=== PATIENT | female | born 1995 | race Caucasian/White ===

== ENCOUNTER 2018-07-22 15:28 | Emergency (ER) | payer MEDICAID ==
[~2018-07-22] VITALS: Ht 170.2 cm; Wt 87.5 kg
[2018-07-22 15:43] VITALS: Ht 170.2 cm; Wt 87.5 kg
[2018-07-22 19:31] VITALS: BP 130/82
== END 2018-07-22 19:31 | disposition home or self-care (01) ==
LOC: ED 15:28
DX: S16.1XXA Strain of muscle, fascia and tendon at neck level, initial encounter (principal); V89.2XXA Person injured in unspecified motor-vehicle accident, traffic, initial encounter; Y93.89 Activity, other specified; Y92.410 Unspecified street and highway as the place of occurrence of the external cause; Y99.8 Other external cause status

== ENCOUNTER 2019-05-17 13:16 | Emergency (ER) | payer MEDICAID ==
[~2019-05-17] VITALS: Ht 157.5 cm; Wt 82.6 kg
[2019-05-17 13:38] VITALS: Ht 157.5 cm; Wt 82.6 kg
[2019-05-17 14:48] LABS: BASOPHIL % 0.6 % (0-2); PLATELET COUNT 304 x10^3mcL (130-400)
[2019-05-17 14:49] LABS: RED CELL DISTRIBUTION WIDTH 15.1 % (11.5-14.5)
[2019-05-17 14:54] LABS: CHLORIDE SERUM 104 mmol/L (98-107); CREATININE SERUM 0.6 mg/dL (0.6-1.0); GFR1 > 60 mL/min; GLUCOSE SERUM 97 mg/dL (74-106); POTASSIUM SERUM 3.8 mmol/L (3.5-5.1); SODIUM SERUM 141 mmol/L (136-145)
[2019-05-17 14:57] LABS: ALBUMIN 3.7 g/dL (3.4-5.0); ALKALINE PHOSPHATASE 110 U/L (46-116); ALT/SGPT 55 U/L (14-59); AST/SGOT 24 U/L (15-37); BILIRUBIN TOTAL 0.4 mg/dL (0.20-1.00); LIPASE 171 IU/L (73-393)
[2019-05-17 14:58] LABS: TOTAL PROTEIN, SERUM 8.6 g/dL (6.4-8.2)
[2019-05-17 18:39] VITALS: BP 129/71
== END 2019-05-17 18:39 | disposition home or self-care (01) ==
LOC: ED 13:16
PROVIDERS: Emergency Medicine
DX: K80.70 Calculus of gallbladder and bile duct without cholecystitis without obstruction (principal); Z98.890 Other specified postprocedural states
CPT/HCPCS: 87804; J1885; J2765; J7030; Q0092